=== PATIENT | female | born 2000 | race African-American/Black ===

== ENCOUNTER 2025-08-11 19:47 | Emergency (ER) | payer OTHER, SELFPAY ==
[2025-08-11] VITALS (8 sets, daily range): BP systolic 100–121; BP diastolic 56–82; PULSE 68–79; RESP 16; TEMP 36.3; O2SAT 96–99; BMI 29.0
[2025-08-11] MEDS: ONDANSETRON 4 MG/2 ML INJ IV (20:20)
[2025-08-11 20:24] LABS: Add Manual Diff / Slide Review NO; Hematocrit 36.6 % (36-46); Hemoglobin 12.2 g/dL (12.0-16.0); Lymphocytes Absolute Auto 3200 /uL (1100-4500); Mean Corpuscular HGB Conc 33.5 % (30-36); Mean Corpuscular Hemoglobin 29.2 PG (26-34); Mean Corpuscular Volume 87.2 fL (80-100); Platelet Count 302 X10^3/uL (150-400)
[2025-08-11 20:33] LABS: Alanine Aminotransferase 14 IU/L (<35); Albumin 4.5 g/dL (3.5-5.0); Albumin Globulin Ratio 1.2 (1.0-2.8); Alkaline Phosphatase 61 U/L (38-126); Blood Urea Nitrogen 14 mg/dL (7-17); Calcium 9.4 mg/dL (8.4-10.2); Carbon Dioxide 28 mmol/L (22-32); Chloride 104 mmol/L (98-107); Estimated Glomerular Filt Rate > 60 mL/min (>60); Globulin 3.8 g/dL (1.7-4.1); Glucose 106 mg/dL (70-99); HEMOLYSIS < 15 (0-50); Potassium 4.1 mmol/L (3.4-5.1); Sodium 137 mmol/L (137-145); Total Protein 8.3 g/dL (6.3-8.2)
[2025-08-11 20:36] LABS: Pregnancy Test Serum,Qual Negative (Negative)
--- NOTE | 2025-08-11 21:57 | DI.US.S_ITS ---
PROCEDURE: US PELVIC COMPLETE INDICATIONS: vaginal bleeding heavy, HCG neg TECHNIQUE: Real-time scanning was performed of the pelvic organs, with image documentation. Additional endovaginal scanning was necessary due to incomplete visualization of the adnexal and endometrial structures by transabdominal scanning. COMPARISON: None. FINDINGS: Uterus: Uterus is retroverted and normal in size at 7.2 x 4.9 x 3.5 cm. The myometrium is homogeneous. The endometrium measures 11 mm combined thickness. No fibroids. Ovaries: The right ovary measures 4.1 x 2.7 x 2.5 cm, with a calculated ovarian volume of 14 cc. The left ovary measures 4.1 x 2.2 x 1.6 cm, with a calculated ovarian volume of 8 cc. The ovaries have a normal sonographic appearance. Less than 12 follicles can be seen in each ovary. No adnexal masses are seen. Other: No pathologic free abdominal or pelvic fluid. IMPRESSION: 1. Endometrium measures 11 mm. 2. No significant ovarian cysts. We strive to produce accurate, complete, and clear reports of imaging services. To assist us in improving patient care, this report was composed using standard report templates and voice recognition software. Therefore, it may contain abnormal punctuation, insertions and/or omissions. Occasional wrong-word or sound-alike substitutions may occur. Though we review the report and make efforts to correct it, we do recommend that the report be read carefully in proper context to recognize any text inaccuracies. Dictated by: Riki Parsons M.D. on 08/12/2025 at 0:56 Approved by: Riki Parsons M.D. on 08/12/2025 at 0:57
[2025-08-11] MEDS: SODIUM CHLORIDE 0.9% 1,000 ML 1000 ML IV (23:11)
--- NOTE | 2025-08-11 23:42 | ED.GENADULT ---
HPI - General Adult General Chief complaint: Vaginal Bleeding Stated complaint: Very heavy vaginal bleeding, today Time Seen by Provider: 08/11/25 21:57 Source: patient Mode of arrival: Ambulatory History of Present Illness HPI narrative: 25-year-old female without use of chronic anticoagulation, no prior menorrhagia, taking control oral a least 28 day cycle pack for the last 6 months, had been on the placebo portion for a number of days, due for her withdrawal bleeding, which was not surprising in timing but quite heavy, saturated her underpants, frequent saturation of pads. Denies syncope or near-syncope symptoms. Related Data Home Medications ?Medication ?Instructions ?Recorded ?Confirmed levonorgestrel-ethinyl estradiol 1 tab PO DAILY 05/03/25 05/03/25 0.1 mg-20 mcg tablet (Lutera (28)) Previous Rx's ?Medication ?Instructions ?Recorded fluoxetine 40 mg capsule 40 mg PO DAILY #90 caps 05/03/25 Allergies Allergy/AdvReac Type Severity Reaction Status Date / Time No Known Drug Allergies Allergy Unverified 08/11/25 20:00 Patient History Social History Smoking Status: Current every day smoker Smoking Status: Current every day smoker tobacco type: vaping Exam Narrative Exam Narrative: GENERAL: Well-developed patient, in mild distress. HEAD: Atraumatic. Normocephalic. EYES: Pupils equal round and reactive. Extraocular motions intact. No scleral icterus. No injection or drainage. ENT: Nose without bleeding, purulent drainage. Throat without erythema, tonsillar hypertrophy or exudate. Airway patent. NECK: Trachea midline. Non tender CARDIOVASCULAR: Regular rate and rhythm without murmurs, gallops, or rubs. RESPIRATORY: Clear to auscultation. Breath sounds equal bilaterally. No wheezes, rales, or rhonchi. GASTROINTESTINAL: Abdomen soft, non-tender, nondistended. EXTREMITIES: No edema or joint tenderness. BACK: Nontender without deformity or crepitance. No flank tenderness. NEURO: AOx3. Motor functions grossly nonfocal. SKIN: No rash or erythema of visible areas Initial Vital Signs Initial Vital Signs: Vital Signs Temperature 97.4 F L 08/11/25 20:00 Pulse Rate 68 08/11/25 20:00 Respiratory Rate 16 08/11/25 20:00 Blood Pressure 121/82 08/11/25 20:00 Pulse Oximetry 99 08/11/25 20:00 Oxygen Delivery Method Room Air 08/11/25 20:00 Course Orders Ordered: ED Orders 08/11/25 21:57 US pelvic complete Stat Discontinued Medications Sodium Chloride (Normal Saline 0.9%) 1,000 mls @ 1,000 mls/hr IV BOLUS ONE Stop: 08/11/25 23:50 Last Infusion: 08/12/25 00:49 Dose: Infused Documented By: Admin: 08/11/25 23:11 Dose: 1,000 mls/hr Documented By: ROSEANNA Ondansetron HCl (Ondansetron 4 Mg/2 Ml Inj) 4 mg IV NOW ONE Stop: 08/11/25 20:16 Last Admin: 08/11/25 20:20 Dose: 4 mg Documented By: JAYESH Vital Signs Vital signs: Vital Signs - 8 hr 08/11/25 22:49 08/11/25 22:50 08/11/25 22:50 Pulse Rate 71 70 Pulse Rate [Orthostatic Lying] Pulse Rate [Orthostatic Sitting] Pulse Rate [Orthostatic Standing] Blood Pressure 103/56 L Blood Pressure [Orthostatic Lying] Blood Pressure [Orthostatic Sitting] Blood Pressure [Orthostatic Standing] Pulse Oximetry 99 98 Oxygen Delivery Method 08/11/25 22:55 08/11/25 22:55 08/11/25 22:59 Pulse Rate 68 74 Pulse Rate [Orthostatic Lying] Pulse Rate [Orthostatic Sitting] Pulse Rate [Orthostatic Standing] Blood Pressure 101/57 L Blood Pressure [Orthostatic Lying] Blood Pressure [Orthostatic Sitting] Blood Pressure [Orthostatic Standing] Pulse Oximetry 98 99 Oxygen Delivery Method 08/11/25 23:00 08/11/25 23:00 08/11/25 23:30 Pulse Rate 72 79 Pulse Rate [Orthostatic Lying] Pulse Rate [Orthostatic Sitting] Pulse Rate [Orthostatic Standing] Blood Pressure 103/59 L Blood Pressure [Orthostatic Lying] Blood Pressure [Orthostatic Sitting] Blood Pressure [Orthostatic Standing] Pulse Oximetry 99 99 Oxygen Delivery Method 08/11/25 23:30 08/12/25 00:00 08/12/25 00:00 Pulse Rate 73 Pulse Rate [Orthostatic Lying] Pulse Rate [Orthostatic Sitting] Pulse Rate [Orthostatic Standing] Blood Pressure 100/65 103/57 L Blood Pressure [Orthostatic Lying] Blood Pressure [Orthostatic Sitting] Blood Pressure [Orthostatic Standing] Pulse Oximetry 96 Oxygen Delivery Method 08/12/25 00:30 08/12/25 00:30 08/12/25 00:53 Pulse Rate 78 85 Pulse Rate [Orthostatic Lying] Pulse Rate [Orthostatic Sitting] Pulse Rate [Orthostatic Standing] Blood Pressure 98/51 L Blood Pressure [Orthostatic Lying] Blood Pressure [Orthostatic Sitting] Blood Pressure [Orthostatic Standing] Pulse Oximetry 96 97 Oxygen Delivery Method 08/12/25 00:53 08/12/25 00:54 08/12/25 00:54 Pulse Rate 90 Pulse Rate [Orthostatic Lying] Pulse Rate [Orthostatic Sitting] Pulse Rate [Orthostatic Standing] Blood Pressure 97/53 L 101/58 L Blood Pressure [Orthostatic Lying] Blood Pressure [Orthostatic Sitting] Blood Pressure [Orthostatic Standing] Pulse Oximetry 97 Oxygen Delivery Method 08/12/25 00:56 08/12/25 01:00 08/12/25 01:00 Pulse Rate 73 Pulse Rate [Orthostatic Lying] 83 Pulse Rate [Orthostatic Sitting] 103 H Pulse Rate [Orthostatic Standing] 95 H Blood Pressure 98/49 L Blood Pressure [Orthostatic Lying] 101/56 L Blood Pressure [Orthostatic Sitting] 92/50 L Blood Pressure [Orthostatic Standing] 101/58 L Pulse Oximetry 96 Oxygen Delivery Method Room Air Medical Decision Making Lab Data Lab results reviewed: Yes I reviewed the patient's lab results. Lab results narrative: White blood cell count 7600, hemoglobin 12.2, platelets adequate. Glucose 106. Normal renal function, serum CO2, electrolytes. Liver functions normal. Blood type AB positive. Serum hCG negative. 08/11/25 20:10 08/11/25 20:10 Labs: Lab Results 08/11/25 08/11/25 Range/Units 20:10 21:16 WBC 7.6 (4.5-11.0) X10^3/uL RBC 4.19 (4.0-5.2) X10^6/uL Hgb 12.2 (12.0-16.0) g/dL Hct 36.6 (36-46) % MCV 87.2 (80-100) fL MCH 29.2 (26-34) PG MCHC 33.5 (30-36) % RDW 13.5 (11.6-14.8) % Plt Count 302 (150-400) X10^3/uL Neut % (Auto) 49.3 L (50-75) % Lymph % (Auto) 42.5 H (25-40) % [place] % (Auto) 5.8 (3-14) % Eos % (Auto) 1.9 L (2-4) % Baso % (Auto) 0.5 (0-2) % Neut # (Auto) 3800 (4634-2333) /uL Lymph # (Auto) 3200 (4321-6038) /uL [place] # (Auto) 400 (0-900) /uL Eos # (Auto) 100 (0-450) /uL Baso # (Auto) 0 (0-100) /uL PT 12.6 H (9.4-12.5) SECONDS INR 1.1 (0.9-1.3) Sodium 137 (137-145) mmol/L Potassium 4.1 (3.4-5.1) mmol/L Chloride 104 (98-107) mmol/L Carbon Dioxide 28 (22-32) mmol/L BUN 14 (7-17) mg/dL Creatinine 0.57 (0.52-1.04) mg/dL Estimated GFR > 60 (>60) mL/min BUN/Creatinine Ratio 24.6 H (6-22) Glucose 106 H (70-99) mg/dL Calcium 9.4 (8.4-10.2) mg/dL Total Bilirubin 0.5 (0.2-1.3) mg/dL AST 20 (14-36) IU/L ALT 14 (<35) IU/L Alkaline Phosphatase 61 (38-126) U/L Total Protein 8.3 H (6.3-8.2) g/dL Albumin 4.5 (3.5-5.0) g/dL Globulin 3.8 (1.7-4.1) g/dL Albumin/Globulin Ratio 1.2 (1.0-2.8) Serum , Qual Negative (Negative) Blood Type AB Positive Antibody Screen Positive A Antibody Identification Cancelled Imaging Data Ultrasound pelvis.: Radiologist's Impression: [address] [address] Ultrasound Report Signed Patient: Shimon Cam MR#: [id number] : 2000 Acct:[id number] Age/Sex: 25 / F Date of Service: 08/11/25 Loc: ED Accession Number: [id number] Procedure: US pelvic complete Ordering Provider: Zach Dexter MD PROCEDURE: US PELVIC COMPLETE INDICATIONS: vaginal bleeding heavy, HCG neg TECHNIQUE: Real-time scanning was performed of the pelvic organs, with image documentation. Additional endovaginal scanning was necessary due to incomplete visualization of the adnexal and endometrial structures by transabdominal scanning. COMPARISON: None. FINDINGS: Uterus: Uterus is retroverted and normal in size at 7.2 x 4.9 x 3.5 cm. The myometrium is homogeneous. The endometrium measures 11 mm combined thickness. No fibroids. Ovaries: The right ovary measures 4.1 x 2.7 x 2.5 cm, with a calculated ovarian volume of 14 cc. The left ovary measures 4.1 x 2.2 x 1.6 cm, with a calculated ovarian volume of 8 cc. The ovaries have a normal sonographic appearance. Less than 12 follicles can be seen in each ovary. No adnexal masses are seen. Other: No pathologic free abdominal or pelvic fluid. IMPRESSION: 1. Endometrium measures 11 mm. 2. No significant ovarian cysts. We strive to produce accurate, complete, and clear reports of imaging services. To assist us in improving patient care, this report was composed using standard report templates and voice recognition software. Therefore, it may contain abnormal punctuation, insertions and/or omissions. Occasional wrong-word or sound-alike substitutions may occur. Though we review the report and make efforts to correct it, we do recommend that the report be read carefully in proper context to recognize any text inaccuracies. Dictated by: Riki Parsons M.D. on 08/12/2025 at 0:56 Approved by: Riki Parsons M.D. on 08/12/2025 at 0:57 [facility] Narrative Medical decision making narrative: 25-year-old female without use of blood thinner medications, no bleeding problems, has been Allesse 28-day pack for the last 6 months, on placebo portion, with heavier than normal periods, some dizziness and lightheadedness symptoms. Normotensive. No tachycardia. Labs pending. Ultrasound pelvis ordered. Lab data: White blood cell count 7600, hemoglobin 12.2, platelets adequate. Glucose 106. Normal renal function, serum CO2, electrolytes. Liver functions normal. PT INR normal. Blood type AB positive. Serum hCG negative. 0030, Ultrasound pelvis report still pending. 0115, case discussed with ObGyn Dr Mendiola, patient hemodynamically stable with adequate hemoglobin, no active bleeding ongoing here in the emergency department. Would hold off on hormonal therapy now, pending follow-up with her established sawyer helper in [facility]. She can also provide consultation if needed. Contact information given for office of the Dr. Mendiola, follow up with [facility] gynecology otherwise advised. Discharged home with family. Return precautions discussed. Discharge Plan Departure Patient Disposition: Home Clinical Impression: Vaginal bleeding Activity Restrictions/Additional Instructions: Heavier menses on withdrawal placebo oral hormonal therapy, hemodynamically stable at present, normal range hemoglobin this far. Ultrasound showed endometrial uterine thickness of 11 mm, no acute changes. Case was discussed with on-call gynecology doctor david Bahena who recommended holding off on any hormonal adjunctive therapies for now, can see you in clinic, if any endometrial sampling or other diagnostic studies to be performed she prefers not starting hormone therapy for now. Follow up with your [facility] sawyer helper, otherwise she can see you in clinic as well. Call the office of your sawyer helper later today during open hours. Return to this/nearest emergency department for any change worsening symptoms or any concerns prior. Prescriptions: No Action levonorgestrel-ethinyl estrad [Lutera (28)] 0.1-20 mg-mcg tablet 1 tab PO DAILY fluoxetine 40 mg capsule 40 mg PO DAILY Qty: 90 2RF Referrals: Annette Dillard MD [Primary Care Provider, Family Practice] Stand Alone Forms: Patient Portal/API, Work Release Note
[2025-08-12] VITALS: BP 103/57; PULSE 73; O2SAT 96
[2025-08-12 00:12] LABS: INR 1.1 (0.9-1.3); Prothrombin Time 12.6 SECONDS (9.4-12.5)
[2025-08-12 00:30] VITALS: BP 98/51; PULSE 78; O2SAT 96
[2025-08-12 00:53] VITALS: BP 97/53; PULSE 85; O2SAT 97
[2025-08-12 00:54] VITALS: BP 101/58; PULSE 90; O2SAT 97
[2025-08-12 00:56] VITALS: BP 101/56; BP 101/58; BP 92/50; PULSE 103; PULSE 83; PULSE 95
[2025-08-12 01:00] VITALS: BP 98/49; PULSE 73; O2SAT 96
== END 2025-08-12 01:38 | disposition home or self-care (01) ==
PROVIDERS: Emergency Provider Emergency Medicine; PCP Family Medicine
DX: N93.9 Abnormal uterine and vaginal bleeding, unspecified (principal); F17.290 Nicotine dependence, other tobacco product, uncomplicated
CPT/HCPCS: 36415; 76830; 76856; 80053; 84703; 85025; 85610; 86850; 86870; 86900; 86901; 96361; 96374; 99284; J2405; J7030